=== PATIENT | male | born 1975 | race Caucasian/White ===

== ENCOUNTER 2021-01-05 09:40 | Outpatient (CLI) | payer OTHER, SELFPAY ==
[2021-01-05 09:53] LABS: Mean Corpuscular HGB Conc 33.3 g/dL (32.0-36.0); Mean Corpuscular Hemoglobin 30.7 pg (27.0-31.0); Mean Corpuscular Volume 92.1 fL (78.0-102.0); Mean Platelet Volume 11.9 fl (8.7-11.0); Platelet Count Result 177 K/mm3 (150-420); Red Blood Count 4.56 M/mm3 (4.70-6.10); Red Cell Distribution Width 13.5 % (11.6-14.4); White Blood Count 6.6 K/mm3 (4.8-10.8)
[2021-01-05 10:50] LABS: Alanine Aminotransferase 27 U/L (16-63); Albumin Level 4.1 g/dL (3.4-5.0); Alkaline Phosphatase 98 U/L (46-116); Anion Gap 9 mmol/L (8-16); Aspartate Amino Transferase 14 U/L (15-37); Bilirubin,Total 0.4 mg/dL (0.00-1.00); Blood Urea Nitrogen 19 mg/dL (7-18); Calcium 9.6 mg/dL (8.5-10.1); Carbon Dioxide 28 mmol/L (21-32); Chloride 104 mmol/L (98-108); Cholesterol 122 mg/dL (0-200); Estimated Glomerular Filt Rate > 60; Glucose 91 mg/dL (70-99); HDL Direct 39 mg/dL (40-60); LDL Cholesterol Calculated 77 mg/dL (<130); Osmolality Calculated 294 mOsm/kg (285-295); Potassium 4.4 mmol/L (3.5-5.1); Sodium 141 mmol/L (136-145); Total Protein 6.6 g/dL (6.4-8.2); Triglycerides 30 mg/dL (0-150)
[2021-01-05 11:01] LABS: Thyroid Stimulating Hormone Reflex 1.33 u/IU/mL (0.36-3.74)
== END 2021-01-05 09:41 | disposition home or self-care (01) ==
PROVIDERS: PCP Family Medicine; Visit Provider Family Medicine
DX: E11.9 Type 2 diabetes mellitus without complications (principal); Z00.00 Encounter for general adult medical examination without abnormal findings
CPT/HCPCS: 36415; 80053; 80061; 84443; 85027

== ENCOUNTER 2021-04-10 01:54 | Day surgery (SDC) | payer OTHER, SELFPAY ==
[2021-04-02 10:16] VITALS: BMI 34.7
[2021-04-10 08:34] VITALS: BP 131/82; PULSE 66; RESP 18; TEMP 36.7; O2SAT 100
[2021-04-10] MEDS: LACTATED RINGERS 1,000 ML 150 ML IV CONT (08:47)
--- NOTE | 2021-04-10 09:03 | P.PNAN_ITS ---
Anes - Initial Pre Proc Eval Procedure: Operation Date: 04/10/21 09:30 Proposed Procedures p Colonoscopy - Carlos Nguyen MD Date/Time: 04/10/21 09:03 Surgeon: Carlos Nguyen MD Pre Op Diagnosis: constipation, rectal pain Patient Data Age: 45 Gender: M Height: 1.83 m Weight: 115.4 kg Last Vital Signs Temp 98.0 F 04/10/21 08:34 Pulse 66 04/10/21 08:34 Resp 18 04/10/21 08:34 BP 131/82 04/10/21 08:34 Pulse Ox 100 04/10/21 08:34 Allergies Allergy/AdvReac Type Severity Reaction Status Date / Time Penicillins Allergy Severe Hives Verified 04/10/21 08:33 Home Medications Medication Instructions Recorded Confirmed Type polyethylene glycol 3350 [Miralax] 17 g PO DAILY 04/02/21 04/02/21 History Patient hx anesthesia problems: none Family hx anesthesia problems: none [facility] Past Medical History Medical History (Updated 03/15/21 @ 10:07 by Brittany Espinal CMA) Anxiety Hypertension Social History Social History (Updated 03/15/21 @ 10:08 by Brittany Espinal CMA) Smoking status: Never smoker Alcohol intake: current Substance use: never Substance use type: does not use Living arrangements: with family Gender identity (if verbalized by the patient): Male Spiritual care concerns: No Anes - Eval Final PreProcedure Day of Procedure 04/10/21 09:03 Patient weight: obese Heart: regular rate and rhythm Lungs: clear to auscultation Airway: Mallampati scale class II Neurological: alert and oriented Last oral intake: >/= 8 hours ASA classification: II Emergent: no Anesthetic plan: proceed Anesthesia type and monitoring: general GIVS and standard monitoring Informed Consent: The patient's anesthetic plan and its attendant risks and benefits were discussed with the patient/family/POA. Questions were solicited and answers provided to the satisfaction of the patient/family/POA.
--- NOTE | 2021-04-10 09:14 | WPDHPUPDATE1 ---
History and Physical Update Update Date/Time: 04/10/21 09:14 History and Physical has been reviewed, including an updated exam of the patient. There are NO changes in the patient's condition. Risks, benefits, and alternatives have been discussed and questions answered. Patient agrees to proceed with procedure.
[2021-04-10 09:40] VITALS: BP 117/87; PULSE 59; RESP 17; O2SAT 100
[2021-04-10 09:50] VITALS: BP 123/77; PULSE 67; RESP 16; O2SAT 100
[2021-04-10 10:00] VITALS: BP 135/89; PULSE 61; RESP 22; O2SAT 100
== END 2021-04-10 10:19 | disposition home or self-care (01) ==
PROVIDERS: PCP Family Medicine; Visit Provider Internal Medicine Gastroenterology
PROC: 0DJD8ZZ Inspection of Lower Intestinal Tract, Via Natural or Artificial Opening Endoscopic (ICD-10-PCS; CPT 45378; principal; 2021-04-10 09:30)
DX: Z12.11 Encounter for screening for malignant neoplasm of colon (principal); K64.4 Residual hemorrhoidal skin tags; I10 Essential (primary) hypertension; F41.9 Anxiety disorder, unspecified; E66.9 Obesity, unspecified; Z68.34 Body mass index [BMI] 34.0-34.9, adult
CPT/HCPCS: 45378; J2704; J7120

== ENCOUNTER 2023-06-26 19:48 | Emergency (ER) | payer OTHER, SELFPAY ==
[2023-06-26 19:50] VITALS: BP 160/100; PULSE 70; RESP 18; TEMP 36.6; O2SAT 98
--- NOTE | 2023-06-26 20:05 | ED.WOUNDLAC ---
HPI - Wound/Laceration General Chief Complaint: Wound/Laceration Stated Complaint: Injury to thumb Time Seen by Provider: 06/26/23 19:49 Source: patient Mode of arrival: ambulatory Limitations: no limitations History of Present Illness HPI narrative: patient an avulsion injury to the tip of his right thumb that occurred earlier this evening, currently bleeding and patient could not get it to stop bleeding, did take a aspirin earlier this afternoon for headache. Patient apparently reached into a suitcase and injured his right thumb. Onset (ago): hour(s) Location: other Extremity Location: Right: hand ( avulsion injury tip of his right thumb) Place: home Patient tetanus UTD: No Context: accidental Associated symptoms: none Related Data Home Medications Medication Instructions Recorded Confirmed No Home Medications 06/26/23 06/26/23 Allergies Allergy/AdvReac Type Severity Reaction Status Date / Time Penicillins Allergy Severe Hives Verified 06/12/22 06:45 Review of Systems Review of Systems: All systems reviewed & are unremarkable except as noted in HPI and below PMFSH Past Medical History Medical History Anxiety Hypertension Social History Social History Smoking status: Never smoker Alcohol intake: current Substance use: never Substance use type: does not use Living arrangements: with family Gender identity (if verbalized by the patient): Male Spiritual care concerns: No Exam Const: General: healthy appearing Nutritional Appearance: well nourished Orientation/consciousness: patient oriented x3 Resp: Effort & Inspection: normal respiratory effort Auscultation: clear to auscultation bilaterally Cardio: Rate: regular rate Rhythm: regular rhythm Extrem: Other: Avulsion injury to the tip of his right thumb Course Course Emergency Course: dressing and pressure applied, patient declined tetanus. Critical Care Time Critical Care Time Critical Care Time: No Discharge Plan Discharge Clinical Impression: Avulsion of skin Patient Disposition: Home, Self-Care Condition: Stable Instructions: Antibiotic Form, Skin Avulsion (ED) Prescriptions: No Action No Home Medications Follow-up/Referrals: Antonio Broussard DO [Primary Care Provider] -
[2023-06-26 20:42] VITALS: BP 144/85; PULSE 74; RESP 18; O2SAT 99
== END 2023-06-26 20:47 | disposition home or self-care (01) ==
PROVIDERS: Emergency Provider Emergency Medicine; PCP Family Medicine
DX: S61.011A Laceration without foreign body of right thumb without damage to nail, initial encounter (principal); I10 Essential (primary) hypertension; W45.8XXA Other foreign body or object entering through skin, initial encounter
CPT/HCPCS: 99282

== ENCOUNTER 2023-12-24 13:07 | Outpatient (CLI) | payer OTHER, SELFPAY ==
[2023-12-24 13:29] LABS: Basophils Absolute Auto 0.05 K/mm3 (0.00-0.10); Basophils Percent Auto 0.6 % (0.0-1.0); Eosinophils Absolute Auto 0.06 K/mm3 (0.02-0.50); Eosinophils Percent Auto 0.8 % (1.0-6.0); Hematocrit 47.3 % (40.0-54.0); Hemoglobin 15.2 g/dL (14.0-18.0); Immature Granulocyte Absolute 0.03 K/mm3 (0.00-0.00); Immature Granulocyte Percent A 0.4 % (0.0-0.0); Immature Platelet Fraction Pct 12.9 % (1.0-7.0); Lymphocytes Absolute Auto 2.13 K/mm3 (1.10-4.50); Lymphocytes Percent Auto 26.8 % (18.0-42.0); Mean Corpuscular HGB Conc 32.1 g/dL (32-36); Mean Corpuscular Hemoglobin 29.2 pg (27.0-31.0); Mean Corpuscular Volume 90.8 fL (78.0-102.0); Mean Platelet Volume 13.2 fl (8.7-11.0); Monocytes Absolute Auto 0.59 K/mm3 (0.10-0.90); Monocytes Percent Auto 7.4 % (2.0-11.0); Neutrophils Absolute Auto 5.09 K/mm3 (1.70-7.20); Platelet Count Result 150 K/mm3 (150-420); Red Blood Count 5.21 M/mm3 (4.70-6.10); Red Cell Distribution Width 13.1 % (11.6-14.4)
[2023-12-24 13:52] LABS: Alanine Aminotransferase 37 U/L (16-63); Albumin Level 4.2 g/dL (3.4-5.0); Alkaline Phosphatase 57 U/L (46-116); Anion Gap 9 mmol/L (4-12); Aspartate Amino Transferase 24 U/L (15-37); Bilirubin,Total 0.8 mg/dL (0.00-1.00); Blood Urea Nitrogen 21 mg/dL (7-18); Calcium 9.1 mg/dL (8.5-10.1); Carbon Dioxide 27 mmol/L (21-32); Chloride 104 mmol/L (98-108); Cholesterol 135 mg/dL (0-200); Estimated Glomerular Filt Rate > 60; Glucose 95 mg/dL (70-99); HDL Direct 43 mg/dL (40-60); LDL Cholesterol Calculated 70 mg/dL (<130); Lipase 34 U/L (16-77); Osmolality Calculated 293 mOsm/kg (285-295); Potassium 4.7 mmol/L (3.5-5.1); Sodium 140 mmol/L (136-145); Total Protein 7.1 g/dL (6.4-8.2); Triglycerides 111 mg/dL (0-150)
[2023-12-27 15:34] LABS: H pylori, Urea Breath NOT DETECTED (NOT DETECTED)
== END 2023-12-24 13:08 | disposition home or self-care (01) ==
PROVIDERS: PCP Family Medicine; Visit Provider Family Medicine
DX: Z00.00 Encounter for general adult medical examination without abnormal findings (principal); R10.9 Unspecified abdominal pain; R10.13 Epigastric pain
CPT/HCPCS: 36415; 80053; 80061; 83013; 83690; 85025; 85055

== ENCOUNTER 2024-01-26 05:38 | Emergency (ER) | payer OTHER, SELFPAY ==
[2024-01-26] VITALS (41 sets, daily range): BP systolic 96–143; BP diastolic 71–119; PULSE 68–149; RESP 8–22; TEMP 35.9–36.8; O2SAT 95–100
--- NOTE | ~2024-01-26 | US_ITS ---
Abdominal Sonogram: Real-time sonographic imaging of the abdomen was performed. Clinical History: Abdominal pain Findings: The liver appears normal with no evidence of mass lesion or bile duct dilatation. Main por nataly vein demonstrates normal direction of flow. The spleen is normal in size without evidence of foca l lesion. The gallbladder is absent, compatible prior cholecystectomy. The common bile duct measures 5 mm. The visualized pancreas, aorta, and IVC are unremarkable. The right kidney measures 11.7 cm in length and the left kidney measures 12.6 cm. There is no hydronephrosis or renal calculus. Impression: Status post cholecystectomy, otherwise unremarkable abdominal ultrasound. Reviewed, dictated and finalized at location . Impression: Status post cholecystectomy, otherwise unremarkable abdominal ultrasound.
--- NOTE | ~2024-01-26 | CT_ITS ---
CT abdomen pelvis w con Ordering provider: Rodrigue Garcia MD History: 48 years Male with . abdominal pain-MID/LOW,NAUSEA,WORSENING,?ULCER . Comparison: January 26, 2024 Technique: CT abdomen and pelvis with IV and without oral contrast. Automated exposure control and it erative reconstruction technique were employed. The dose-length product was 1571.52 mGy-cm. 100 mL Om nipaque 350 was given IV. Findings: VISUALIZED LOWER CHEST: Bilateral dependent atelectatic changes. Nodule in the right lower lobe which measures 8 mm. Nodule also seen posteriorly in the right lower lobe measuring 9 mm. UPPER ABDOMINAL ORGANS: Liver: Normal. Gallbladder: Normal. Spleen: An infarct is seen in the mid portion of the spleen. Stomach/duodenum: Normal. Pancreas: Normal. Adrenals: Normal. Kidneys: Focal hypodensity measuring 2.6 x 2.3 cm in the left kidney upper pole which may be inflamma tory or an infarct but follow-up to exclude a mass is advised. PELVIC ORGANS: The bladder is underfilled. BOWEL AND MESENTERY: Colon: No evidence of diverticulitis. Normal appendix. Small Bowel: Normal. No obstruction. Peritoneum/mesentery: No free air or free fluid. No mesenteric lymphadenopathy. RETROPERITONEUM: Normal aorta. No retroperitoneal lymphadenopathy. MUSCULOSKELETAL: Superficial soft tissues: Edema in the subcutaneous tissues of the back. Small fat-containing right i nguinal hernia. Otherwise, The superficial soft tissues are normal. Bones: Age appropriate degenerative changes of the spine. Spinal canal stenosis is seen with small an teroposterior diameter of the spinal canal. Sclerotic lesion in the right iliac bone follow-up advise d. IMPRESSION: 1. Infarct in the spleen. Clinical correlation advised. 2. Hypodensity in the left kidney upper pole which may be inflammatory or an infarct but follow-up t o exclude a mass is advised. Reviewed, dictated and finalized at location A. IMPRESSION: 1. Infarct in the spleen. Clinical correlation advised. 2. Hypodensity in the left kidney upper pole which may be inflammatory or an i nfarct but follow-up to exclude a mass is advised.
--- NOTE | ~2024-01-26 | CT_ITS ---
Non-contrast CT scan of the Abdomen and Pelvis Clinical indication: Left lower quadrant pain Technique: 2.5 mm axial scans were obtained through the abdomen and pelvis without intravenous or or al contrast. Dose reduction technique was used on this scan by utilizing automated exposure control a nd iterative reconstruction technique. The dose-length product (DLP) was 1748.19 mGy-cm. Findings: Images through the lung bases reveal no abnormalities. There is no evidence of renal or ureteral calculi. The kidneys and the ureters are nondilated. The liver, spleen, pancreas, gallbladder, and adrenals appear normal. There is no aortic aneurysm. There is no evidence of bowel obstruction. Left abdominal wall lipoma present. Images through the pelvis were performed. There is no evidence of ascites or lymphadenopathy. Urinary bladder unremarkable. No pelvic mass seen. No ascites. There is degenerative spondylosis of lumbar spine with underlying extensive severe spinal canal steno sis of the lumbar spine. Impression: No acute abnormality. Extensive lumbar spinal canal stenosis. Reviewed, dictated and finalized at [facility]. Impression: No acute abnormality. Extensive lumbar spinal canal stenosis.
--- NOTE | 2024-01-26 05:47 | ED.ABDPAIN ---
HPI - Abdominal Pain General Chief Complaint: Abdominal Pain Stated Complaint: abdominal pain Time Seen by Provider: 01/26/24 05:47 Source: patient Mode of arrival: ambulatory Limitations: no limitations History of Present Illness HPI narrative: Patient is a 48-year-old male with some general abdominal pain for the past month. He has been having some left lower quadrant abdominal pain for the past 3 days. He came to the ER because of change of the abdominal pain as well as some nausea. He has recently added on a Protonix tablet by the primary doctor. There is a plan to send him to the GI doctor soon. MD elicited complaint: abdominal pain Pertinent past history: none Onset (ago): day(s) (3) Pain Consistency: constant Location: LLQ Severity: mild Pain scale (0-10): 4 Quality: sharp and burning Radiation: none Migration to: no migration Exacerbating factors: nothing Relieving factors: nothing Associated symptoms: nausea Related Data Allergies Allergy/AdvReac Type Severity Reaction Status Date / Time Penicillins Allergy Severe Hives Verified 01/21/24 07:25 Review of Systems Review of Systems: All systems reviewed & are unremarkable except as noted in HPI and below Constitutional: Constitutional: Reports no additional constitutional complaints Eyes: Eyes: Reports no additional eye complaints ENT: Reports system reviewed and no additional complaints, except as documented Cardiovascular: Cardiovascular: Reports no additional cardiovascular complaints Respiratory: Respiratory: Reports no additional respiratory complaints Gastrointestinal: Gastrointestinal: Reports no additional gastrointestinal complaints Genitourinary: Genitourinary: Reports no additional male genitourinary complaints Musculoskeletal: Musculoskeletal: Reports no additional musculoskeletal complaints Integumentary/Breasts: Skin/Breast: Reports system reviewed and no additional complaints, except as docu Neurologic: Reports system reviewed and no additional complaints, except as documented Psychiatric: Psychiatric: Reports no additional psychiatric complaints Endocrine: Endocrine: Reports no additional endocrine complaints Hematologic/Lymphatic: Hematologic/Lymphatic: Reports no additional hematologic/lymphatic complaints Allergic/Immunologic: Allergic/Immunologic: Reports no additional allergic/immunologic complaints [facility] Past Medical History Medical History Anxiety Hypertension Social History Social History Smoking status: Never smoker Alcohol intake: current Substance use: never Substance use type: does not use Living arrangements: with family Gender identity (if verbalized by the patient): Male Spiritual care concerns: No Exam Const: General: healthy appearing Nutritional Appearance: well nourished Orientation/consciousness: patient oriented x3 HENMT: Head: normal to inspection Ears: external ears normal Face/Nose/Sinus: Normal external nose present Eyes: Conjunctivae: conjunctivae normal Pupils: Equal, round and reactive pupils present EOM: EOMs intact bilaterally Neck: Neck: normal visual inspection Chest: Chest palpation & inspection: normal inspection of the chest Resp: Effort & Inspection: normal respiratory effort and not labored Auscultation: clear to auscultation bilaterally Cardio: Rate: regular rate Rhythm: regular rhythm Heart sounds: no murmurs GI: Inspection: non-distended GI Palp: Yes Soft to palpation, Yes Tenderness to palpation present (GI) ( Left lower quadrant), No Guarding due to palpation present (GI), No Rigid due to palpation, No Hernia present, No Palpable mass present and No Rebound tenderness present Auscultation: bowels sounds not normal and Hypoactive bowel sounds present : General: Yes bladder normal to palpation Back/Spine/Pelvis: Back: no CVA tenderness
[2024-01-26] MEDS: ONDANSETRON HCL ODT 4 MG TABLET PO (06:09)
[2024-01-26] MEDS: MAG HYDROX/ALUMINUM HYD/SIMETH 30 ML, PHENobarb/HYOSCY/ATROPINE/SCOP 32.4 MG, LIDOCAINE... PO (06:10)
[2024-01-26 06:23] LABS: Basophils Absolute Auto 0.03 K/mm3 (0.00-0.10); Basophils Percent Auto 0.3 % (0.0-1.0); Eosinophils Absolute Auto 0.01 K/mm3 (0.02-0.50); Eosinophils Percent Auto 0.1 % (1.0-6.0); Hematocrit 46.3 % (40.0-54.0); Hemoglobin 15.2 g/dL (14.0-18.0); Immature Granulocyte Absolute 0.06 K/mm3 (0.00-0.00); Immature Granulocyte Percent A 0.6 % (0.0-0.0); Immature Platelet Fraction Pct 12.3 % (1.0-7.0); Lymphocytes Absolute Auto 0.96 K/mm3 (1.10-4.50); Lymphocytes Percent Auto 8.8 % (18.0-42.0); Mean Corpuscular HGB Conc 32.8 g/dL (32-36); Mean Corpuscular Hemoglobin 29.2 pg (27.0-31.0); Mean Corpuscular Volume 88.9 fL (78.0-102.0); Mean Platelet Volume 13.2 fl (8.7-11.0); Monocytes Absolute Auto 0.53 K/mm3 (0.10-0.90); Monocytes Percent Auto 4.9 % (2.0-11.0); Neutrophils Percent Auto 85.3 % (50.0-70.0); Platelet Count Result 169 K/mm3 (150-420); Red Blood Count 5.21 M/mm3 (4.70-6.10); Red Cell Distribution Width 12.8 % (11.6-14.4); White Blood Count 10.9 K/mm3 (4.8-10.8)
[2024-01-26 06:33] LABS: Alanine Aminotransferase 32 U/L (16-63); Albumin Level 3.8 g/dL (3.4-5.0); Alkaline Phosphatase 51 U/L (46-116); Anion Gap 11 mmol/L (4-12); Aspartate Amino Transferase 20 U/L (15-37); Bilirubin,Total 1.3 mg/dL (0.00-1.00); Blood Urea Nitrogen 12 mg/dL (7-18); Calcium 9.3 mg/dL (8.5-10.1); Carbon Dioxide 24 mmol/L (21-32); Chloride 101 mmol/L (98-108); Estimated CRCL calculation 75 ml/min; Estimated Glomerular Filt Rate 48; Glucose 118 mg/dL (70-99); Lipase 39 U/L (16-77); Osmolality Calculated 282 mOsm/kg (285-295); Potassium 4.7 mmol/L (3.5-5.1); Sodium 136 mmol/L (136-145); Total Protein 6.8 g/dL (6.4-8.2)
[2024-01-26 06:40] LABS: Lactic Acid Reflex 2.1 mmol/L (0.4-2.0)
[2024-01-26 06:42] LABS: Appearance Urine Clear (Clear); Color Urine Yellow (Yellow); Specific Grav Ur > 1.030 (1.010-1.020)
[2024-01-26 06:43] LABS: Add Urine Microscopic? YES; Bilirubin Urine 2+ (Negative); Blood Urine Trace-intact (Negative); Glucose Urine UA Negative (Negative); Ketones Urine Trace (Negative); Leukocyte Esterase Ur Negative LEU/UL (Negative); Nitrate Urine Negative (Negative); Protein Urine 1+ (Negative); Urobilinogen Urine 0.2 mg/dL (0.2-1.0)
[2024-01-26 06:44] LABS: Bacteria Urine Trace /hpf; Mucus Urine Moderate /lpf; RBC Urine None seen /hpf (0-2); Squamous Epithelial Cell Urine Occasional /hpf (Few); WBC Urine None seen /hpf (0-3)
[2024-01-26] MEDS: ONDANSETRON INJ 4 MG/2 ML VIAL IV PUSH ×2 (06:54→11:44)
[2024-01-26] MEDS: SODIUM CHLORIDE 0.9% IV 1,000 ML 999 ML IV CONT ×2 (06:54→08:09)
[2024-01-26] MEDS: PANTOPRAZOLE SODIUM IV 40 MG VIAL 80 MG IV PUSH (08:01)
[2024-01-26] MEDS: MORPHINE SULFATE (*CRX) 4 MG/ML INJ IV PUSH (08:03)
[2024-01-26] MEDS: METOCLOPRAMIDE HCL INJ 10 MG/2 ML VIAL IV PUSH (08:04)
[2024-01-26 09:16] LABS: Reflex Lactic Acid Yes or No Add Lactic
--- NOTE | 2024-01-26 09:50 | ECG_ITS ---
Test Date: 2024-01-26 09:58:50 Measurements Intervals [place] Rate: 135 P: 0 MO: 0 QRS: 110 QRSD: 103 T: 91 QT: 318 QTc: 477 Interpretive Statements ATRIAL FIBRILLATION WITH RAPID VENTRICULAR RESPONSE RIGHT AXIS DEVIATION INCOMPLETE RIGHT BUNDLE BRANCH BLOCK BORDERLINE T WAVE ABNORMALITY- ANTEROLAT/HIGH LAT LEADS ABNORMAL ECG No previous ECG available for comparison Electronically Signed On 01-26-2024 10:11:15 CDT by Tuan Brown D.O.
[2024-01-26] MEDS: dilTIAZem HCl INJ 25 MG/5 ML VIAL 10 MG IV PUSH ×2 (10:09→10:29)
[2024-01-26] MEDS: ENOXAPARIN 120 MG/0.8 ML SYRINGE 142 MG SUB-Q (10:12)
[2024-01-26] MEDS: dilTIAZem 100 MG/100 ML 100 MG/100 ML BAG IV CONT (10:50)
[2024-01-26 10:53] LABS: INR 1.2; Lactate Dehydrogenase 213 U/L (85-227); Partial Thromboplastin Time 24.7 Sec (23.9-30.70); Prothrombin Time 12.6 Seconds (9.50-12.1)
--- NOTE | 2024-01-26 11:41 | PHAR ---
No heparin bolus per md before IV drop. Pt already received Lovenox, MD accepting transfer advised initiating drip.
[2024-01-26] MEDS: HEPARIN SOD/D5W 100 UNITS/ML 25,000 UNITS/250 ML BAG 10 UNITS IV CONT (11:47)
[2024-01-26 12:14] LABS: NT Pro B Type Natriuretic Pept 5516 pg/mL (0-125); Troponin I 47.4 ng/L (0.00-60.4)
== END 2024-01-26 12:30 | disposition short-term general hospital (02) ==
PROVIDERS: Emergency Medicine; Emergency Provider Emergency Medicine; PCP Family Medicine
DX: R10.32 Left lower quadrant pain (principal); I48.91 Unspecified atrial fibrillation; D73.5 Infarction of spleen; I10 Essential (primary) hypertension
CPT/HCPCS: 36415; 74176; 74177; 74178; 76700; 80053; 81001; 83605; 83615; 83690; 83880; 84484; 85025; 85055; 85610; 85730; 93005; 96361; 96365; 96366; 96367; 96372; 96375; 96376; 99285; A9270; J1644; J1650; J2270; J2405; J2470; J2765; J7030; Q9967